=== PATIENT | male | born 1975 | race Caucasian/White ===

== ENCOUNTER → 2017-01-13 | Day surgery (SDC) | payer BC ==
[~2017-01-13] VITALS: Ht 190.5 cm; Wt 81.6 kg
[~2017-01-13] MED LIST: ANTACID SUSP 30 ML UDC (MYLANTA) PO ONE; CATHETER FLUSH 10 ML SYR IV PRN; DEXAMETHASONE PF 10 MG/ML (DECADRON) VIAL ONE; FAMOTIDINE 20MG/2ML IV (PEPCID) IV STA; GLYCOPYRROLATE 0.2 MG/ML (ROBINUL) 2 ML VIAL ONE; HYDR-3812 PO; IOHEXOL 350 MG/ML 100 ML (OMNIPAQUE 350) VIAL IV ONE; LACTATED RINGERS 1,000 ML IV ONE; LACTATED RINGERS 2,000 ML IV ONE; LIDOCAINE 1% INJ 20 ML (XYLOCAINE) VIAL ONE; LIDOCAINE 2% VISCOUS 15 ML UDC PO ONE; LIDOCAINE PF 2% 5 ML (XYLOCAINE) VIAL ONE; MIDAZOLAM 2 MG/2 ML (VERSED) VIAL ONE; NALOXONE 0.4 MG/ML 1 ML (NARCAN) VIAL ONE; NEOSTIGMINE (BLOXIVERZ ) 1 MG/1ML 10 ML VIAL ONE; NS 100 ML (IVPB) BAG IV ONE; NS IV 1000 ML 1,000 ML IV ONE; ONDANSETRON 4 MG/2 ML (SDV) Z0FRAN IVP ONE; ONDANSETRON 4 MG/2 ML (SDV) Z0FRAN IVP PRN; ONDANSETRON 4 MG/2 ML (SDV) Z0FRAN ONE; PANTOPRAZOLE 40 MG/10 ML (PROTONIX) VIAL IV ONE; ROCURONIUM 50 MG/5 ML (ZEMURON) VIAL IV ONE; ceFAZolin 1,000 MG (ANCEF) VIAL IV ONE; ceFAZolin 1,000 MG (ANCEF) VIAL ONE; fentaNYL INJECTION 100 MCG/2 ML AMP IVP STA; fentaNYL INJECTION 100 MCG/2 ML AMP ONE; morphine INJ 10 MG/ML 1ML (SYR OR VIAL) ONE; proPOfol 200 MG/20 ML (DIPRIVAN) VIAL IV ONE
--- NOTE | 2017-01-13 12:24 | ED Abdominal Pain ---
General Chief Complaint: Abdominal/GI Problems Stated Complaint: ABD PAIN Nursing Triage Note: pt ambualted to room. pt states he has been having abd pain since he woke up this morning. n/v this morning as well. pt states he also can't sit still. Sepsis Screen: No Definite Risk Source of Information: Patient, Family Exam Limitations: No Limitations History of Present Illness Time Seen By Provider: 12:10 Initial Comments Here with report of epigastric abdominal pain that started this morning. This has been associated with nausea and vomiting. Vomiting seems to come when the pain is severe. Does have history of hiatal hernia. Also has history of previous reflux disease but currently has been off his meds for a few years and doing just fine. Tried to eat a granola bar this morning as well as drink some fluid and was unable to keep that down. Denies diarrhea. Timing/Duration: 4-6 Hours Severity/Quality: Moderate, Aching, Burning Location: Epigastric Radiation: No Radiation Activities at Onset: None Modifying Factors: Worsens With Eating, Worsens With Movement, Improves With Vomiting Associated Symptoms: No Back Pain, No Chest Pain, No Fever/Chills, Nausea/ Vomiting, No Shortness of Air, No Swelling/Mass in Abdomen, No Weakness Allergies and Home Medications Allergies Coded Allergies: No Known Drug Allergies (Unverified , 01/13/17) Review of Systems Constitutional: see HPI, No chills, No fever EENTM: No Symptoms Reported Respiratory: No Symptoms Reported Cardiovascular: No Symptoms Reported Gastrointestinal: See HPI, Abdominal Pain, Nausea, Denies Rectal Bleeding, Vomiting Genitourinary: No Symptoms Reported Musculoskeletal: no symptoms reported Skin: no symptoms reported All Other Systems Reviewed Negative Unless Noted: Yes Past Fggjzxt-Usxvuv-Sqcisp Hx Patient Social History Alcohol Use: Denies Use Recreational Drug Use: No Smoking Status: Former Smoker Type Used: Cigarettes 2nd Hand Smoke Exposure: No Recent Foreign Travel: No Contact w/Someone Who Travel: No Recent Infectious Disease Expo: No Recent Hopitalizations: No Immunizations Up To Date Tetanus Booster (TDap): Less than 5yrs Seasonal Allergies Seasonal Allergies: No Surgeries HX Surgeries: No Respiratory Hx Respiratory Disorders: No Cardiovascular Hx Cardiac Disorders: No Neurological Hx Neurological Disorders: No Reproductive System Hx Reproductive Disorders: No Genitourinary Hx Genitourinary Disorders: No Gastrointestinal Hx Gastrointestinal Disorders: No Gastrointestinal Disorders: Irritable Bowel Musculoskeletal Hx Musculoskeletal Disorders: No Endocrine Hx Endocrine Disorders: No HEENT HX ENT Disorders: No Cancer Hx Cancer: No Psychosocial Hx Psychiatric Problems: No Integumentary HX Skin/Integumentary Disorder: No Blood Transfusions Hx Blood Disorders: No Reviewed Nursing Assessment Reviewed/Agree w Nursing PMH: Yes Family Medical History Significant Family History: No Pertinent Family Hx Physical Exam Vital Signs VS - Last 72 Hours, by Label 01/13/17 11:48 Temp 97.1 Pulse 57 Resp 20 B/P (MAP) 144/78 Pulse Ox 100 O2 Delivery Room Air Capillary Refill : Less Than 3 Seconds General Appearance: WD/WN, mild distress (abdominal pain) HEENT: PERRL/EOMI, pharynx normal Neck: full range of motion, supple Respiratory: lungs clear, normal breath sounds Cardiovascular: regular rate, rhythm, no murmur Gastrointestinal: soft, tenderness (epigastric) Extremities: non-tender, normal inspection Back: normal inspection, no CVA tenderness, no vertebral tenderness Neurologic/Psychiatric: alert, oriented x 3 Skin: normal color, warm/dry Laceration Repair : Suture Size: 5-0 Progress/Results/Core Measures Results/Orders Lab Results Laboratory Tests Test 01/13/17 11:58 Range/Units White Blood Count 11.0 4.3-11.0 10^3/uL Red Blood Count 5.00 4.35-5.85 10^6/uL Hemoglobin 14.9 13.3-17.7 G/DL Hematocrit 43 40-54 % Mean Corpuscular Volume 85 80-99 FL Mean Corpuscular Hemoglobin 30 25-34 PG Mean Corpuscular Hemoglobin Concent 35 32-36 G/DL Red Cell Distribution Width 12.2 10.0-14.5 % Platelet Count 216 130-400 10^3/uL Mean Platelet Volume 12.0 H 7.4-10.4 FL Neutrophils (%) (Auto) 83 H 42-75 % Lymphocytes (%) (Auto) 10 L 12-44 % Monocytes (%) (Auto) 6 0-12 % Eosinophils (%) (Auto) 0 0-10 % Basophils (%) (Auto) 0 0-10 % Neutrophils # (Auto) 9.2 H 1.8-7.8 X 10^3 Lymphocytes # (Auto) 1.1 1.0-4.0 X 10^3 Monocytes # (Auto) 0.7 0.0-1.0 X 10^3 Eosinophils # (Auto) 0.0 0.0-0.3 10^3/uL Basophils # (Auto) 0.0 0.0-0.1 10^3/uL Sodium Level 140 135-145 MMOL/L Potassium Level 3.6 3.6-5.0 MMOL/L Chloride Level 106 98-107 MMOL/L Carbon Dioxide Level 23 21-32 MMOL/L Anion Gap 11 5-14 MMOL/L Blood Urea Nitrogen 11 7-18 MG/DL Creatinine 1.00 0.60-1.30 MG/DL Estimat Glomerular Filtration Rate > 60 BUN/Creatinine Ratio 11 0-20 Glucose Level 136 H 70-105 MG/DL Calcium Level 9.6 8.5-10.1 MG/DL Total Bilirubin 0.8 0.1-1.0 MG/DL Aspartate Amino Transf (AST/SGOT) 19 5-34 U/L Alanine Aminotransferase (ALT/SGPT) 18 0-55 U/L Alkaline Phosphatase 59 40-136 U/L Total Protein 7.2 6.4-8.2 GM/DL Albumin 4.6 H 3.2-4.5 GM/DL Amylase Level 70 25-125 U/L Lipase 15 8-78 U/L My Orders Orders - RYDER DAVENPORT MD Saline Lock/Iv-Start (01/13/17 12:21) Ns Iv 1000 Ml (Sodium Chloride 0.9%) (01/13/17 12:21) Fentanyl Injection (Sublimaze Injection (01/13/17 12:21) Ondansetron Injection (Zofran Injectio (01/13/17 12:30) Famotidine Injection (Pepcid Injection) (01/13/17 12:21) Amylase (01/13/17 12:21) Cbc With Automated Diff (01/13/17 12:21) Comprehensive Metabolic Panel (01/13/17 12:21) Lipase (01/13/17 12:21) Pantoprazole Injection (Protonix Injecti (01/13/17 12:30) Fentanyl Injection (Sublimaze Injection (01/13/17 14:17) Lidocaine 2% Viscous 15 Ml (Xylocaine Vi (01/13/17 14:30) Antacid Suspension (Mylanta Suspension (01/13/17 14:30) Ct Abdomen/Pelvis W (01/13/17 14:17) Iohexol Injection (Omnipaque 350 Mg/Ml 1 (01/13/17 15:00) Sodium Chloride Flush (Catheter Flush Sy (01/13/17 15:00) Ns (Ivpb) (Sodium Chloride 0.9% Ivpb Bag (01/13/17 15:00) Medications Given in ED Current Medications Medications Dose Ordered Sig/Ericka Route Start Time Stop Time Status Last Admin Dose Admin Al Hydrox/Mg Hydrox/Simethicone 30 ml ONCE ONCE PO 01/13/17 14:30 01/13/17 14:31 DC 01/13/17 14:22 30 ML Iohexol 100 ml ONCE ONCE IV 01/13/17 15:00 01/13/17 15:01 DC 01/13/17 15:09 75 ML Lidocaine HCl 15 ml ONCE ONCE PO 01/13/17 14:30 01/13/17 14:31 DC 01/13/17 14:22 15 ML Ondansetron HCl 4 mg ONCE ONCE IVP 01/13/17 12:30 01/13/17 12:31 DC 01/13/17 12:35 4 MG Pantoprazole 40 mg ONCE ONCE IV 01/13/17 12:30 01/13/17 12:31 DC 01/13/17 12:41 40 MG Sodium Chloride 100 ml ONCE ONCE IV 01/13/17 15:00 01/13/17 15:01 DC 01/13/17 15:10 80 ML Sodium Chloride 1,000 ml @ 0 mls/hr Q0M ONCE IV 01/13/17 12:21 01/13/17 12:24 DC 01/13/17 12:42 1,000 MLS/HR Vital Signs/I&O Vital Sign - Last 12Hours 01/13/17 11:48 Temp 97.1 Pulse 57 Resp 20 B/P (MAP) 144/78 Pulse Ox 100 O2 Delivery Room Air Blood Pressure Mean: 100 Progress Note : Progress Note Seen and evaluated. IV, labs, normal saline 1 L bolus, Zofran 4 mg IV, Pepcid 20 mg IV and Protonix 40 mg IV ordered. Fentanyl 75 g IV ordered. Monitor patient. 1415: Was much improved but now having return of pain. Labs look okay but we will get CT abdomen and pelvis due to persistent pain. Repeat fentanyl 75 g IV and will give GI cocktail. 1530: Acute appendicitis findings on CT. Dr. Domingo had been notified by radiology and has seen the patient. He will go to the OR for appendectomy. Repeat fentanyl 50 g IV for pain. Patient to be admitted. Patient and family agree with plan. Diagnostic Imaging Diagonstic Imaging: CT Plain Films/CT/US/NM/MRI: abdomen, pelvis Comments VIA [place], [place] NAME: SULTANA BLANCHARD [facility] REC#: [id number] PT STATUS: REG ER : 1975 PHYSICIAN: RYDER DAVENPORT MD ADMIT DATE: 01/13/17/ER Draft Date of Exam:01/13/17 CT ABDOMEN/PELVIS W PROCEDURE: CT abdomen and pelvis with contrast. TECHNIQUE: Multiple contiguous axial images were obtained through the abdomen and pelvis after administration of intravenous contrast. INDICATION: Abdominal pain. CONTRAST: 100 mL of Omnipaque 350 was administered intravenously. FINDINGS: A calcified granuloma in the left lung base anteriorly is seen. The liver, spleen, pancreas, and gallbladder appear unremarkable. The adrenal glands appear unremarkable. The kidneys demonstrate symmetric enhancement and contrast excretion. There is no hydronephrosis. There is no bowel obstruction. There is a thickened tubular structure in the right lower quadrant that appears to represent an inflamed dilated appendix. Its attachment to the to the cecum is not well seen. It is also inseparable from small bowel loops in the upper aspect near the base of the cecum. No abscess or significant free fluid. No pneumoperitoneum. The abdominal aorta is normal in caliber. No periaortic significantly enlarged lymph node is seen. The urinary bladder appears unremarkable. The osseous structures appear unremarkable. IMPRESSION: Findings are concerning for acute appendicitis. The findings were discussed with Dr. Domingo at the time of dictation. Dictated on workstation # [id number] Dict: 01/13/17 1520 Trans: 01/13/17 1537 [id number] Interpreted by: MERLIN SCOTT MD Electronically signed by: Departure Communication Time/Spoke to Admitting Phy: 15:25 Impression Impression: Primary Impression: Appendicitis Qualified Codes: K35.3 - Acute appendicitis with localized peritonitis Disposition: ADMITTED INPATIENT Condition: Stable Decision to Admit Reason: Admit from ER (General) Decision to Admit/Date: Jan 13, 2017 Time/Decision to Admit Time: 15:25 Departure-Patient Inst. Referrals: TRINH WHITE MD (PCP/Family) Primary Care Physician RYDER DAVENPORT MD Jan 13, 2017 12:24
[2017-01-13 12:28] LABS: BASOPHILS % (AUTO) 0 % (0-10); EOSINOPHILS % (AUTO) 0 % (0-10); LYMPHOCYTES # (AUTO) 1.1 X 10^3 (1.0-4.0); LYMPHOCYTES % (AUTO) 10 % (12-44); MEAN CORPUSCULAR HEMOGLOBIN 30 PG (25-34); MEAN CORPUSCULAR HGB CONC 35 G/DL (32-36); MEAN CORPUSCULAR VOLUME 85 FL (80-99); MONOCYTES # (AUTO) 0.7 X 10^3 (0.0-1.0); MONOCYTES % (AUTO) 6 % (0-12); NEUTROPHILS # (AUTO) 9.2 X 10^3 (1.8-7.8); NEUTROPHILS % (AUTO) 83 % (42-75); PLATELET COUNT 216 10^3/uL (130-400); RED CELL DISTRIBUTION WIDTH 12.2 % (10.0-14.5)
[2017-01-13 12:46] LABS: ALANINE AMINOTRANSFERASE 18 U/L (0-55); ALBUMIN 4.6 GM/DL (3.2-4.5); AMYLASE 70 U/L (25-125); ANION GAP 11 MMOL/L (5-14); ASPARTATE AMINO TRANSFERASE 19 U/L (5-34); BILIRUBIN,TOTAL 0.8 MG/DL (0.1-1.0); BLOOD UREA NITROGEN 11 MG/DL (7-18); BUN/CREATININE RATIO 11 (0-20); CALCIUM 9.6 MG/DL (8.5-10.1); CARBON DIOXIDE 23 MMOL/L (21-32); CHLORIDE 106 MMOL/L (98-107); GFR ESTIMATED > 60; GLUCOSE 136 MG/DL (70-105); HEMOLYSIS 7 (-100-29); ICTERUS 1.1 (-100-1.9); LIPASE 15 U/L (8-78); LIPEMIA 0 (-100-49); POTASSIUM 3.6 MMOL/L (3.6-5.0); SODIUM 140 MMOL/L (135-145); TOTAL PROTEIN 7.2 GM/DL (6.4-8.2)
--- NOTE | 2017-01-13 15:37 | Diagnostic Imaging Report ---
PROCEDURE: CT abdomen and pelvis with contrast. TECHNIQUE: Multiple contiguous axial images were obtained through the abdomen and pelvis after administration of intravenous contrast. INDICATION: Abdominal pain. CONTRAST: 100 mL of Omnipaque 350 was administered intravenously. FINDINGS: A calcified granuloma in the left lung base anteriorly is seen. The liver, spleen, pancreas, and gallbladder appear unremarkable. The adrenal glands appear unremarkable. The kidneys demonstrate symmetric enhancement and contrast excretion. There is no hydronephrosis. There is no bowel obstruction. There is a thickened tubular structure in the right lower quadrant that appears to represent an inflamed dilated appendix. Its attachment to the to the cecum is not well seen. It is also inseparable from small bowel loops in the upper aspect near the base of the cecum. No abscess or significant free fluid. No pneumoperitoneum. The abdominal aorta is normal in caliber. No periaortic significantly enlarged lymph node is seen. The urinary bladder appears unremarkable. The osseous structures appear unremarkable. IMPRESSION: Findings are concerning for acute appendicitis. The findings were discussed with Dr. Domingo at the time of dictation. Dictated by: Dictated on workstation # [id number]
--- NOTE | 2017-01-13 15:53 | History & Physical-Surgical ---
History of Present Illness History of Present Illness Reason for visit/HPI Surgery asked to see pt regarding abdominal pain HPI: Pt presented to ER, states he has been having abd pain since he woke up this morning. n/v this morning as well. pt states he also can't sit still. Vomiting seems to come when the pain is severe. Does have history of hiatal hernia. Also has history of previous reflux disease but currently has been off his meds for a few years and doing just fine. Tried to eat a granola bar this morning as well as drink some fluid and was unable to keep that down. Denies diarrhea. Pt is seen by Dr. Rees who thought he may have Crohn's but work-up was negative. He was given Viberzi for chronic diarrhea. Pt thought this pain was similar to his reflux that he had 10 yrs ago; "but this is much worse". Pt points to umbilical area and slightly lower, not reallly to one side. Timing/Duration: 4-6 Hours Severity/Quality: Moderate, Aching, Burning Location: Epigastric Radiation: No Radiation Activities at Onset: None Modifying Factors: Worsens With Eating, Worsens With Movement, Improves With Vomiting Associated Symptoms: No Back Pain, No Chest Pain, No Fever/Chills, No Shortness of Air, No Swelling/Mass in Abdomen, No Weakness Date of Admission 01/13/2017 Time Seen by Provider: 15:28 I consulted on this patient on 01/13/17 15:47 Attending Physician Admitting Physician Pascual Brooks MD Consult Allergies and Home Medications Allergies Coded Allergies: No Known Drug Allergies (Unverified , 01/13/17) Past Rjidwkz-Jnpyzt-Saucdv Hx Patient Social History Alcohol Use: Denies Use Recreational Drug Use: No Smoking Status: Former Smoker Type Used: Cigarettes 2nd Hand Smoke Exposure: No Recent Foreign Travel: No Contact w/Someone Who Travel: No Recent Infectious Disease Expo: No Recent Hopitalizations: No Immunizations Up To Date Tetanus Booster (TDap): Less than 5yrs Seasonal Allergies Seasonal Allergies: No Surgeries HX Surgeries: No Respiratory Hx Respiratory Disorders: No Cardiovascular Hx Cardiac Disorders: No Neurological Hx Neurological Disorders: No Reproductive System Hx Reproductive Disorders: No Genitourinary Hx Genitourinary Disorders: No Gastrointestinal Hx Gastrointestinal Disorders: No Gastrointestinal Disorders: Irritable Bowel Musculoskeletal Hx Musculoskeletal Disorders: No Endocrine Hx Endocrine Disorders: No HEENT HX ENT Disorders: No Cancer Hx Cancer: No Psychosocial Hx Psychiatric Problems: No Integumentary HX Skin/Integumentary Disorder: No Blood Transfusions Hx Blood Disorders: No Reviewed Nursing Assessment Reviewed/Agree w Nursing PMH: Yes Family Medical History Significant Family History: No Pertinent Family Hx, Diabetes (father), Hypertension (brother) Constitutional: No chills, No fever, weakness EENTM: No blurred vision, No hearing loss, No throat swelling, No vision loss Respiratory: No cough, No dyspnea on exertion, No hemoptysis Cardiovascular: No chest pain, No edema, No palpitations Gastrointestinal: see HPI, No jaundice, No melena Genitourinary: No dysuria, No frequency, No hematuria Musculoskeletal: No back pain, No joint pain, No muscle stiffness Skin: No change in color, No change in hair/nails Psychiatric/Neurological: Denies Anxiety, Denies Depressed, Denies Pre- Existing Deficit, Denies Seizure, Denies Tingling, Denies Weakness Other pt denies any heat or cold intolerance, no polydypsia or polyuria, no abnormal bleeding or bruising Physical Exam Vital Signs Vital Sign - Last 12Hours 01/13/17 11:48 Temp 97.1 Pulse 57 Resp 20 B/P (MAP) 144/78 Pulse Ox 100 O2 Delivery Room Air Capillary Refill : Less Than 3 Seconds General Appearance: WD/WN, Moderate Distress (secondary to pain) Eyes: Bilateral Eye EOMI, Bilateral Eye PERRL HEENT: Pharynx Normal, No Pale Conjunctivae (L), No Pale Conjunctivae (R), No Scleral Icterus (L), No Scleral Icterus (R) Neck: Full Range of Motion, Normal Inspection, Non Tender, Supple Respiratory: Chest Non Tender, Lungs Clear, Normal Breath Sounds, No Accessory Muscle Use Cardiovascular: Regular Rate, Rhythm, No Murmur, Normal Peripheral Pulses Gastrointestinal: No Organomegaly, No Distended, Guarding (voluntary), Tenderness (around umbilica area, maybe into RLQ) Rectal: Deferred Back: No CVA Tenderness, No Vertebral Tenderness Extremity: Normal Capillary Refill, Normal Inspection, Normal Range of Motion, Non Tender, No Calf Tenderness Neurologic/Psychiatric: Alert, Oriented x3, No Motor/Sensory Deficits, Normal Mood/Affect, fundraising manager II-XII Norm as Tested Skin: Normal Color, Warm/Dry Lymphatic: No Adenopathy (neck, axilla or groin) Data Review Labs Laboratory Tests 01/13/17 11:58: White Blood Count 11.0, Red Blood Count 5.00, Hemoglobin 14.9, Hematocrit 43, Mean Corpuscular Volume 85, Mean Corpuscular Hemoglobin 30, Mean Corpuscular Hemoglobin Concent 35, Red Cell Distribution Width 12.2, Platelet Count 216, Mean Platelet Volume 12.0H, Neutrophils (%) (Auto) 83H, Lymphocytes (%) (Auto) 10L, Monocytes (%) (Auto) 6, Eosinophils (%) (Auto) 0, Basophils (%) (Auto) 0, Neutrophils # (Auto) 9.2H, Lymphocytes # (Auto) 1.1, Monocytes # (Auto) 0.7, Eosinophils # (Auto) 0.0, Basophils # (Auto) 0.0, Sodium Level 140, Potassium Level 3.6, Chloride Level 106, Carbon Dioxide Level 23, Anion Gap 11, Blood Urea Nitrogen 11, Creatinine 1.00, Estimat Glomerular Filtration Rate > 60, BUN/ Creatinine Ratio 11, Glucose Level 136H, Calcium Level 9.6, Total Bilirubin 0.8 , Aspartate Amino Transf (AST/SGOT) 19, Alanine Aminotransferase (ALT/SGPT) 18, Alkaline Phosphatase 59, Total Protein 7.2, Albumin 4.6H, Amylase Level 70, Lipase 15 Assessment/Plan Assessment/Plan Assessment/Plan Acute Appendicitis -Radiologist read CT as acute appendicitis (appendix thickened with appendicolith). To OR for laparoscopic appendectomy, possible open. IV ABX, NPO, IV fluids. Discussed risks and complications of procedure with pt; including but not limited to pain, bleeding, infection, scar, damage to bowel and need for further procedure. All questions answered to pt's and his 's satisfaction. CARY HOOPER DO Jan 13, 2017 15:53
[2017-01-13 16:25] VITALS: BP 144/78
[2017-01-13] MEDS: LACTATED RINGERS 1,000 ML IV PRN ×2 (16:28→17:21)
--- NOTE | 2017-01-13 17:47 | Progress Note-Post Operative ---
Post-Operative Progess Note Surgeon (s)/Netting Weaver (s) Surgeon CARY HOOPER DO Netting Weaver: none Pre-Operative Diagnosis Acute Appy Post-Operative Diagnosis same pending pathology Procedure & Operative Findings Date of Procedure 01/13/17 Procedure Performed/Findings Lap appy Anesthesia Type GET Estimated Blood Loss Estimated blood loss (mL): scant Specimens/Packing Specimens Removed CARY Oswald DO Jan 13, 2017 17:47
--- NOTE | 2017-01-13 17:50 | Discharge Inst-Surgical ---
Discharge Inst-Surgical Depart Medication/Instructions New, Converted or Re-Newed RX: RX Given to Pt/Family Patient Instructions Follow up Appt: Make appointment for 1 week, . Instructions: No lifting greater than 10 pounds. No strenuous activity. May shower in 24 hours, no tub bath or soaking. Use incentive spirometer at home as directed. No Smoking Skin/Wound Care: May remove bandages in am. Dermabond will fall off on its own. Symptoms to Report: Appetite Changes, Extremity Discoloration, Numbness/Tingling, Swelling Increased , Bleeding Excessive, Eyesight Changes, Pain Increased, Urine Color Change, Constipation(Persistent), Fever over 101 degree F, Pain/Pressure in chest, Urinating Difficulty, Cough Up/Vomit Blood, Heart Beat Irreg/Pounding, Pain/ Pressure in jaw, Vaginal Bleeding Increase, Cramps in feet or legs, Lightheadedness, Pain/Pressure in shoulder, Diarrhea(Persistent), Memory Changes Suddenly, Questions/Concerns, Weight gain consecutive days, Dizziness/ Fainting, Nausea/Vomiting, Shortness of Breath, Weight gain over 2 pounds If questions or concerns contact your physician Or seek help at emergency department. Activity Activity as Tolerated: Yes Activity Instructions: Avoid Pulling & Pushing, Avoid Stress to Incision Driving Instructions: No Driving/Refer to Dr. Kern Discharge Diet: No Restrictions Diet After 24 Hours: Clear Liquid if Nauseous If Any Problems/Questions/Issu: Contact Your Physician, Go to Emergency Room Skin/Wound Care Infection Signs and Symptoms: Increased Redness, Foul Odor of Wound, Increased Drainage, Skin Itchy or Has a Rash, Increased Swelling, Temperature Above 101 F Wound Care Comment: Heating pad to neck and shoulder for pain tonight. Bathing Instructions: Shower Stitches/Bakari/Dermabond Dis: Dermabond Ice Pack: Ice On and Off Site CARY HOOPER DO Jan 13, 2017 17:50
[2017-01-13] MEDS: morphine INJ 10 MG/ML 1ML (SYR OR VIAL) IVP PRN ×2 (18:20→18:25)
--- NOTE | 2017-01-14 05:14 | OPERATIVE REPORT ---
DATE OF SERVICE: PREOPERATIVE DIAGNOSIS: Acute appendicitis. POSTOPERATIVE DIAGNOSIS: Acute appendicitis, pending pathology. PROCEDURE: Laparoscopic appendectomy. SURGEON: Dr. Domingo. DIRECTOR LEARNING: None. ANESTHESIA: General endotracheal tube. SPECIMEN: Appendix. BLOOD LOSS: Scant. FLUIDS: Per anesthesia. POSTOPERATIVE CONDITION: Stable. INDICATION FOR PROCEDURE: The patient is a 41-year-old male who has some abdominal pain, borderline elevated white count and had a CAT scan read as acute appendicitis. FINDINGS: The patient had a very thickened appendix what looked like a little bit erythematous. This is much larger than normal, removed and sent to pathology. PROCEDURE NOTE: After informed consent was obtained, the patient was brought to the operating room, placed on the operating table in supine position. He was sterilely prepped and draped in normal fashion. Local lidocaine was used to infiltrate the skin above the umbilicus. I then made an incision with #11 blade, carried down through the skin into subcutaneous tissue, then deepened down through subcutaneous tissue with Bovie electrocautery down to the fascia. Fascia incised with Bovie electrocautery and then bluntly entered the abdomen. I placed an 11 mm trocar port under direct visualization, created a pneumoperitoneum and then placed 2 more ports in normal fashion using local lidocaine, an 11 blade for stab incision and the AppBrickStep system, all done under direct visualization, one suprapubically and one in the left lower quadrant. Next, able to visualize the appendix and it was very thickened with some erythema around it. I looked around in the abdomen and did not see any other obvious pathology. There did not appear to be any evidence of Crohn's disease. I was able to grasp the mesoappendix and then started coming across the mesoappendix with LigaSure, clamping, coagulating and transecting in this fashion coming all the way across the mesoappendix and ligating the appendiceal artery. Once the appendix was only attached to the cecum, I switched to a 5 mm camera and then brought the Endo-HUONG into the 11 mm trocar port, placed across the base of appendix, clamped and fired, thereby transecting the appendix. Then placed a bag in the abdomen, placed the appendix in the bag and then removed this through the supraumbilical incision and placed the port back in the abdomen, irrigated with normal saline and suctioned this out. I looked around, again no other obvious pathology and at this point I removed all ports under direct visualization and allowed pneumoperitoneum to escape. Closed the supraumbilical incision with an 0 Vicryl [id number] suture, copiously irrigated all incisions with normal saline and then closed the 2 small 5-mm incisions with a single interrupted 4-0 undyed Monocryl subcuticular stitch. I then closed the supraumbilical incision with 3 interrupted 4-0 undyed Monocryl subcuticular stitches. Area was cleaned and dried and Dermabond placed as well as some bandage. The patient was then transferred to recovery room in stable condition. Sponge, instrument and needle count correct at the end of the case. Job ID: [id number] DocumentID: [id number] Dictated Date: 01/13/2017 17:47:40 Drivers' Cash Clerk Date: 01/14/2017 03:53:06 Dictated By: CARY DOMINGO DO
== END | disposition home or self-care (01) ==
LOC: EDUNIT# 11:42 → ER 11:43 → SDC 15:47
PROVIDERS: ATTEND Surgery
DX: K35.80 Unspecified acute appendicitis (principal); Z87.891 Personal history of nicotine dependence
CPT/HCPCS: 36415; 74177; 80053; 82150; 83690; 85025

== ENCOUNTER → 2018-08-29 | Emergency (ER) | payer OTHER, BC ==
[~2018-08-29] VITALS: Ht 190.5 cm; Wt 81.6 kg
[~2018-08-29] MED LIST changes: +ACHD5005 PO; -ANTACID SUSP 30 ML UDC (MYLANTA) PO ONE; -CATHETER FLUSH 10 ML SYR IV PRN; -DEXAMETHASONE PF 10 MG/ML (DECADRON) VIAL ONE; -FAMOTIDINE 20MG/2ML IV (PEPCID) IV STA; -GLYCOPYRROLATE 0.2 MG/ML (ROBINUL) 2 ML VIAL ONE; -HYDR-3812 PO; -IOHEXOL 350 MG/ML 100 ML (OMNIPAQUE 350) VIAL IV ONE; -LACTATED RINGERS 1,000 ML IV ONE; -LACTATED RINGERS 2,000 ML IV ONE; -LIDOCAINE 1% INJ 20 ML (XYLOCAINE) VIAL ONE; -LIDOCAINE 2% VISCOUS 15 ML UDC PO ONE; -LIDOCAINE PF 2% 5 ML (XYLOCAINE) VIAL ONE; -MIDAZOLAM 2 MG/2 ML (VERSED) VIAL ONE; -NALOXONE 0.4 MG/ML 1 ML (NARCAN) VIAL ONE; -NEOSTIGMINE (BLOXIVERZ ) 1 MG/1ML 10 ML VIAL ONE; -NS 100 ML (IVPB) BAG IV ONE; -NS IV 1000 ML 1,000 ML IV ONE; -ONDANSETRON 4 MG/2 ML (SDV) Z0FRAN IVP ONE; -ONDANSETRON 4 MG/2 ML (SDV) Z0FRAN IVP PRN; -ONDANSETRON 4 MG/2 ML (SDV) Z0FRAN ONE; -PANTOPRAZOLE 40 MG/10 ML (PROTONIX) VIAL IV ONE; -ROCURONIUM 50 MG/5 ML (ZEMURON) VIAL IV ONE; -ceFAZolin 1,000 MG (ANCEF) VIAL IV ONE; -ceFAZolin 1,000 MG (ANCEF) VIAL ONE; -fentaNYL INJECTION 100 MCG/2 ML AMP IVP STA; -fentaNYL INJECTION 100 MCG/2 ML AMP ONE; -morphine INJ 10 MG/ML 1ML (SYR OR VIAL) ONE; -proPOfol 200 MG/20 ML (DIPRIVAN) VIAL IV ONE
[2018-08-29 13:46] LABS: BASOPHILS % (AUTO) 0 % (0-10); EOSINOPHILS # (AUTO) 0.1 10^3/uL (0.0-0.3); EOSINOPHILS % (AUTO) 1 % (0-10); HEMATOCRIT 43 % (40-54); HEMOGLOBIN 14.9 G/DL (13.3-17.7); LYMPHOCYTES # (AUTO) 0.7 X 10^3 (1.0-4.0); LYMPHOCYTES % (AUTO) 10 % (12-44); MEAN CORPUSCULAR HEMOGLOBIN 30 PG (25-34); MEAN CORPUSCULAR HGB CONC 35 G/DL (32-36); MEAN CORPUSCULAR VOLUME 87 FL (80-99); MEAN PLATELET VOLUME 11.3 FL (7.4-10.4); MONOCYTES # (AUTO) 0.6 X 10^3 (0.0-1.0); MONOCYTES % (AUTO) 8 % (0-12); NEUTROPHILS # (AUTO) 5.9 X 10^3 (1.8-7.8); NEUTROPHILS % (AUTO) 81 % (42-75); PLATELET COUNT 194 10^3/uL (130-400); RED CELL DISTRIBUTION WIDTH 11.9 % (10.0-14.5); WHITE BLOOD COUNT 7.3 10^3/uL (4.3-11.0)
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
[2018-08-29 14:08] LABS: ALANINE AMINOTRANSFERASE 27 U/L (0-55); ALBUMIN 4.6 GM/DL (3.2-4.5); ALKALINE PHOSPHATASE 60 U/L (40-136); BILIRUBIN,TOTAL 0.6 MG/DL (0.1-1.0); BUN/CREATININE RATIO 10; CALCIUM 9.3 MG/DL (8.5-10.1); CARBON DIOXIDE 21 MMOL/L (21-32); CHLORIDE 106 MMOL/L (98-107); GFR ESTIMATED > 60; GLUCOSE 100 MG/DL (70-105); POTASSIUM 3.7 MMOL/L (3.6-5.0); SODIUM 140 MMOL/L (135-145)
[2018-08-29 15:00] VITALS: BP 137/101
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
== END | disposition home or self-care (01) ==
LOC: EDUNIT# 13:18 → ER 13:20
DX: R07.89 Other chest pain (principal); K21.9 Gastro-esophageal reflux disease without esophagitis; K58.9 Irritable bowel syndrome, unspecified; Z90.49 Acquired absence of other specified parts of digestive tract
CPT/HCPCS: 36415; 80053; 84484; 85025; 93005

== ENCOUNTER → 2018-12-26 | Outpatient (CLI) | payer BC, OTHER ==
--- NOTE | 2018-12-26 18:03 | Diagnostic Imaging Report ---
INDICATION: Mass left epididymis. FINDINGS: The right testicle measures 5.2 x 2.1 x 3 cm. The left testicle measures 4.6 x 2.1 x 2.2 cm. There are no testicular masses. Normal blood flow to both testes with Doppler sampling. There is a simple-appearing cyst in the left epididymis measuring 1.4 x 0.7 cm. There are very small hydroceles bilaterally. IMPRESSION: There is a 1.4 cm epididymal cyst on the left. Small bilateral hydroceles. Dictated by: Dictated on workstation # [id number]
== END ==
LOC: RAD 16:39
PROVIDERS: ATTEND Urology
DX: N50.3 Cyst of epididymis (principal); N43.3 Hydrocele, unspecified
CPT/HCPCS: 76870

== ENCOUNTER 2022-01-28 07:15 | Outpatient (CLI) | payer BC ==
[~2022-01-28] VITALS: Ht 190.5 cm; Wt 85.3 kg
[2022-01-30] MEDS ORDERED: ELUX75TA PO (12:21)
[2022-01-30] MEDS ORDERED: HYDR12.56 PO (12:21)
== END 2022-01-30 12:23 | disposition home or self-care (01) ==
LOC: PREOP 07:15
PROVIDERS: ATTEND Internal Medicine
DX: Z01.818 Encounter for other preprocedural examination (principal)

== ENCOUNTER 2022-02-06 08:27 | Day surgery (SDC) | payer BC ==
--- NOTE | 2022-01-27 20:13 | HISTORY AND PHYSICAL ---
DATE OF SERVICE: COLONOSCOPY HISTORY AND PHYSICAL HISTORY OF PRESENT ILLNESS: The patient is a 46-year-old white male being referred for screening colonoscopy. He has a history of IBS stress related, but has been doing well on Viberzi as doses have been reduced to 75 mg daily with control of diarrhea and abdominal pain. He had one other colonoscopy over 10 years ago for evaluation of diarrhea at which point IBS was diagnosed by Dr. Rees. He reports that he has been feeling well. He denies any significant abdominal pain, rare diarrhea episodes evaluated by stress with no bright red blood per rectum or melena. He denies change in weight. PAST SURGICAL HISTORY: Significant for an appendectomy in 2017. 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 He has a 95-dxiz-dohw smoking history, but quit 3 years ago. FAMILY HISTORY: Other than his grandfather's colon cancer, mother has hypertension and father has type 2 diabetes. Mother has had a history of colon polyps removed with no known family history for any colonic polyposis syndrome. REVIEW OF SYSTEMS: CONSTITUTIONAL: Denies night sweats, chills, fever, change in weight. GASTROINTESTINAL: As noted in the HPI. PULMONARY: Denies cough, wheezing or shortness of breath. CARDIOVASCULAR: Denies orthopnea, PND, pedal edema, chest discomfort or dyspnea on exertion. PHYSICAL EXAMINATION: GENERAL: Reveals a fit appearing white male in no acute distress. VITAL SIGNS: Weight 188.6 pounds, blood pressure 134/80. HEENT: Unremarkable. Sclerae nonicteric. CHEST: Clear to auscultation. CARDIOVASCULAR: Reveals regular rate and rhythm without murmur, S3 or S4. ABDOMEN: Soft, supple without mass, organomegaly or tenderness. EXTREMITIES: Reveal no cyanosis, clubbing or edema. ASSESSMENT AND PLAN: The patient is being set up for screening colonoscopy, deemed to be of slightly higher than average risk considering a grandfather with colon cancer and mother with a history of colon polyps. Prep instructions with PLENVU were given and questions were answered. Electronic medical record was reviewed. I thank you for the referral of this pleasant gentleman. Job ID: [id number] DocumentID: [id number] Dictated Date: 01/22/2022 14:07:50 Academic Affairs Assistant Date: 01/22/2022 14:38:41 Dictated By: FRANKLIN GARCIA MD [facility]
[~2022-02-06] VITALS: Ht 191 cm; Wt 85.3 kg
[~2022-02-06 08:27] MED LIST changes: +ELUX75TA PO; +HYDR12.56 PO
[2022-02-06] MEDS ORDERED: LACTATED RINGERS 1,000 ML IV STA (08:31)
[2022-02-06 08:45] VITALS: BP 149/97
[2022-02-06] MEDS ORDERED: MIDAZOLAM 5 MG/5 ML (VERSED) VIAL IV ONE (08:45)
[2022-02-06] MEDS ORDERED: fentaNYL INJ 100 MCG/2 ML AMP IVP ONE (08:45)
[2022-02-06] MEDS ORDERED: PROPOFOL INJECTION 50 ML IV ONE (09:49)
[2022-02-06] MEDS ORDERED: MIDAZOLAM 2 MG/2 ML (VERSED) VIAL ONE (09:49)
[2022-02-06] MEDS ORDERED: LACTATED RINGERS 1,000 ML IV ONE (09:56)
--- NOTE | 2022-02-06 09:57 | Pre-Op Note & Conscious Sedat ---
Pre-Operative Progress Note H&P Reviewed The H&P was reviewed, patient examined and no changes noted. Date H&P Reviewed: Feb 06, 2022 Time H&P Reviewed: 09:57 Conscious Sedation Pre-Proced ASA Score 2 For ASA 3 and 4: Consider anesthesia and medical clearance. Also, for patients with a history of failed moderate sedation consider anesthesia. Airway Lungs Heart ASA score ASA 1: a normal healthy patient ASA 2: a patient with a mild systemic disease (mid diabetes, controlled hypertension, obesity ASA 3: a patient with a severe systemic disease that limits activity (angina, COPD, prior Myocardial infarction) ASA 4: a patient with an incapacitating disease that is a constant threat to life (CHF, renal failure) ASA 5: a moribund patient not expected to survive 24 hrs. (ruptured aneurysm) ASA 6: a declared brain- patient whose organs are being harvested. For emergent operations, add the letter E after the classification Mallampati Classification Grade 2 Sedation Plan Analgesia, Amnesia, Plan communicated to team members, Discussed options with patient/fam, Discussed risks with patient/fam The patient is an appropriate candidate to undergo the planned procedure, sedation, and anesthesia. The patient immediately re-assessed prior to indication. FRANKLIN GARCIA MD Feb 06, 2022 09:57
[2022-02-06 10:25] VITALS: BP 103/58
[2022-02-06 10:29] VITALS: BP 103/60
--- NOTE | 2022-02-06 10:37 | Anesthesia-General Post-Op ---
MAC Patient Condition Mental Status/LOC: Same as Preop Cardiovascular: Satisfactory Nausea/Vomiting: Absent Respiratory: Satisfactory Pain: Controlled Complications: Absent Post Op Complications Complications None Follow Up Care/Instructions Patient Instructions None needed. Anesthesiology Discharge Order Discharge Order Patient is doing well, no complaints, stable vital signs, no apparent adverse anesthesia problems. No complications reported per nursing. DEVONTE AGUSTIN CRNA Feb 06, 2022 10:36
[2022-02-06 10:50] VITALS: BP 96/63
--- NOTE | 2022-02-06 18:29 | OPERATIVE REPORT ---
DATE OF SERVICE: COLONOSCOPY SUMMARY INDICATION FOR THE PROCEDURE: Screening colonoscopy. DESCRIPTION OF PROCEDURE: The patient was placed in the left lateral decubitus position. Prior to undergoing colonoscopy, patient underwent digital rectal evaluation. Anal sphincter tone was normal and the perianal reflexes intact. No abnormalities were noted on digital inspection of anal canal or distal rectal vault. The prostate is mildly enlarged and anodular on digital inspection. The colonoscope was then inserted into the rectum and under direct visualization advanced to cecum. The cecum was identified by identification of the ileocecal valve and cecal strap. Photographic documentation was obtained. Careful inspection was made as colonoscope was withdrawn. Quality of prep was good. FINDINGS: There was no evidence for internal or external hemorrhoids. The rectum was unremarkable. Present in the mid sigmoid colon was a 3 mm sessile polyp that was photographed and biopsied and ablated with hot forceps with no blood loss. The remainder of the sigmoid colon, descending colon, splenic flexure, transverse colon, hepatic flexure, ascending colon, and cecum were unremarkable. ASSESSMENT: 1. Digital rectal evaluation was compatible with mild BPH. 2. One 3 mm sessile polyp was removed via hot forceps from the mid sigmoid colon with an otherwise normal colonoscopy to the cecum under good prep conditions. As long as there is no surprise on histopathology report, I would advocate consideration for repeat screening colonoscopy in 10 years. I thank you for the referral of this pleasant gentleman. Job ID: [id number] DocumentID: [id number] Dictated Date: 02/06/2022 10:28:10 Mold Design Engineer Date: 02/06/2022 18:28:20 Dictated By: FRANKLIN GARCIA MD
== END 2022-02-06 11:19 | disposition home or self-care (01) ==
LOC: ENDO 08:27
PROVIDERS: ATTEND Internal Medicine
DX: Z12.11 Encounter for screening for malignant neoplasm of colon (principal); D12.5 Benign neoplasm of sigmoid colon; N40.0 Benign prostatic hyperplasia without lower urinary tract symptoms
CPT/HCPCS: 88305

== ENCOUNTER → 2022-08-05 | Outpatient (CLI) | payer BC | LOC: CARD 11:41 | PROVIDERS: ATTEND Internal Medicine | DX: R00.2 Palpitations (principal) | CPT/HCPCS: 93246 ==

== ENCOUNTER → 2022-09-01 | Outpatient (CLI) | payer BC ==
[2022-09-01 10:39] VITALS: BP 130/80
== END ==
LOC: CARD 09:40
PROVIDERS: ATTEND Internal Medicine Cardiovascular Disease
DX: R00.2 Palpitations (principal)
CPT/HCPCS: C8929; C8930; 93306